=== PATIENT | female | born 1965 | race African-American/Black ===

== ENCOUNTER 2017-09-11 09:48 | Emergency (ER) | payer OTHER ==
[2017-09-11 09:59] VITALS: BP 194/118
[2017-09-11] MEDS ORDERED: LIDOCAINE 5% (700 MG) TRANSDERMAL ADH..PATCH TP ONE (10:31)
[2017-09-11] MEDS ORDERED: KETOROLAC TROMETHAMINE 60 MG/2 ML SDV IM ONE (10:31)
--- NOTE | 2017-09-11 10:36 | ER Document Report ---
ED General - General Chief Complaint: Neck Pain >24hrs old Stated Complaint: NECK PAIN,BACK PAIN Time Seen by Provider: 09/11/17 10:31 TRAVEL OUTSIDE OF THE [place] IN LAST 30 DAYS: No - HPI Patient complains to provider of: Neck pain headache Notes: Patient states neck pain and stiffness ongoing for a week. Denies any history of trauma denies any fever chills nausea vomiting diarrhea. Patient states she does have a headache with pain in the back of her head and front of her head. Patient states she has not taken any Tylenol Motrin for the pain. Patient resting comfortably upon my evaluation. Patient states that she did not take her blood pressure medication this morning. Blood pressure is elevated. - Related Data Allergies/Adverse Reactions: No Known Allergies Allergy (Verified 09/11/17 09:59) Past Medical History - Social History Smoking Status: Never Smoker Chew tobacco use (# tins/day): No Frequency of alcohol use: None Drug Abuse: None Family History: None, Other - NEG. DVT Patient has suicidal ideation: No Patient has homicidal ideation: No - Past Medical History Cardiac Medical History: Reports: Hx Hypertension Renal/ Medical History: Denies: Hx Peritoneal Dialysis Past Surgical History: Reports: Hx Bowel Surgery - SBO, Hx Section, Hx Hysterectomy - Immunizations Hx Diphtheria, Pertussis, Tetanus Vaccination: Yes Hx Pneumococcal Vaccination: 07/18/13 Review of Systems - Review of Systems Constitutional: No symptoms reported EENT: Other - Neck pain Cardiovascular: No symptoms reported Respiratory: No symptoms reported Gastrointestinal: No symptoms reported Genitourinary: No symptoms reported Female Genitourinary: No symptoms reported Musculoskeletal: No symptoms reported Skin: No symptoms reported Hematologic/Lymphatic: No symptoms reported Neurological/Psychological: No symptoms reported Physical Exam - Vital signs Vitals: Temp Pulse Resp BP Pulse Ox 97.7 F 89 16 194/118 H 100 09/11/17 09:55 09/11/17 09:55 09/11/17 09:55 09/11/17 09:55 09/11/17 09:55 Interpretation: Hypertensive - General General appearance: Appears well, Alert - HEENT Head: Normocephalic, Atraumatic Eyes: Normal Conjunctiva: Normal Cornea: Normal Pupils: PERRL Sinus: Normal Nasal: Normal Mouth/Lips: Normal Pharynx: Normal Neck: Other - Decreased range of motion of the neck patient states due to pain. Patient does have pain to the paraspinal muscles especially on the right right greater than left there is pain on the left side.. No: Anterior cervical chain, Posterior cervical chain, Neck mass, Shotty nodes, Thyroid nodule - Respiratory Respiratory status: No respiratory distress Chest status: Nontender Breath sounds: Normal Chest palpation: Normal - Cardiovascular Rhythm: Regular Heart sounds: Normal auscultation Murmur: No - Abdominal Inspection: Normal Distension: No distension Bowel sounds: Normal Tenderness: Nontender Organomegaly: No organomegaly - Back Back: Normal, Nontender - Extremities General upper extremity: Normal inspection, Nontender, Normal color, Normal ROM , Normal temperature General lower extremity: Normal inspection, Nontender, Normal color, Normal ROM , Normal temperature, Normal weight bearing. No: Babak's sign - Neurological Neuro grossly intact: Yes Cognition: Normal Orientation: AAOx4 Caroline Coma Scale Eye Opening: Spontaneous [place] Coma Scale Verbal: Oriented Caroline Coma Scale Motor: Obeys Commands Caroline Coma Scale Total: 15 Speech: Normal Motor strength normal: LUE, RUE, LLE, RLE Sensory: Normal - Psychological Associated symptoms: Normal affect, Normal mood - Skin Skin Temperature: Warm Skin Moisture: Dry Skin Color: Normal Course - Re-evaluation Re-evalutation: 09/11/17 12:19 Patient more likely experiencing muscle spasms and tension headache. Will prescribe Ultram educated the patient use about Tylenol and Motrin. Also educated patient use of ice packs and warm packs. Patient states she did not take her blood pressure medication this morning instructed patient to take her meds as directed when she arrives home. 09/11/17 12:20 The patient presents with headache without signs of DEALER ACCOUNTS INVESTIGATOR bleed, stroke, infection , or other serious etiology. The patient is neurologically intact. Given the extremely low risk of these diagnoses further testing and evaluation for these possibilities does not appear to be indicated at this time. The patient has been instructed to return if the symptoms worsen or change in any way.. - Vital Signs Vital signs: Temp Pulse Resp BP Pulse Ox 97.7 F 89 16 194/118 H 100 09/11/17 09:55 09/11/17 09:55 09/11/17 09:55 09/11/17 09:55 09/11/17 09:55 Discharge - Discharge Clinical Impression: Tension headache, Neck pain Hypertension Qualifiers: Hypertension type: essential hypertension Qualified Code(s): I10 - Essential ( primary) hypertension Condition: Good Disposition: HOME, SELF-CARE Instructions: Acetaminophen, Use of Utem-Fxq-Yievvhe Ibuprofen ([facility]), Ice Massage ([facility]), Muscle Strain ([facility]), Myalagia (Muscle Pain) ([facility]), Tension Headache ([facility]), Warm Packs ([facility]) Additional Instructions: Your symptoms today are caused by tight muscles in your upper back neck causing your headache you have a tension headache. You may take Tylenol and Motrin for pain control. He may take the prescribed medication for pain control as well. Please use ice packs and warm packs. Return to ER symptoms worsen. Prescriptions: Tramadol HCl [Ultram 50 mg Tablet] 50 mg PO ASDIR PRN #20 tablet PRN Reason: Forms: Elevated Blood Pressure
== END 2017-09-11 11:08 | disposition home or self-care (01) ==
LOC: ER 09:48
DX: G44.209 Tension-type headache, unspecified, not intractable (principal); M54.2 Cervicalgia; I10 Essential (primary) hypertension; M54.9 Dorsalgia, unspecified
CPT/HCPCS: 99283; 96372; J1885

== ENCOUNTER 2017-10-11 21:49 | Emergency (ER) | payer OTHER ==
--- NOTE | 2017-10-11 22:18 | RADIOLOGY REPORT (SQ) ---
EXAM DESCRIPTION: FOOT LEFT COMPLETE COMPLETED DATE/TIME: 10/11/2017 10:10 pm REASON FOR STUDY: swelling and injury to foot. COMPARISON: None. NUMBER OF VIEWS: Three views. TECHNIQUE: AP, lateral and oblique radiographic images acquired of the left foot. LIMITATIONS: None. FINDINGS: MINERALIZATION: Normal. BONES: No acute fracture or dislocation. No worrisome bone lesions. JOINTS: No effusions. SOFT TISSUES: No soft tissue swelling. No foreign body. OTHER: No other significant finding. IMPRESSION: NEGATIVE STUDY OF THE LEFT FOOT. NO RADIOGRAPHIC EVIDENCE OF ACUTE INJURY. TECHNICAL DOCUMENTATION: JOB ID: [id number] [employer]- All Rights Reserved
[2017-10-11 23:11] VITALS: BP 184/100
--- NOTE | 2017-10-11 23:34 | ER Document Report ---
HPI - HPI Patient complains to provider of: foot injury Onset: This evening Onset/Duration: Sudden Quality of pain: Sharp Pain Level: 5 Context: Patient states she was attempting to stand up and put her hand on a bookshelf in which the shelf was loose and corner of the shelf fell hitting her right foot. Patient complains of swelling to right midfoot area. Patient complains of inability to ambulate due to pain. Patient states she does have a history of hypertension and forgot to take her evening dose of her medicine tonight. Associated Symptoms: Other - Right foot tenderness Exacerbated by: Standing, Movement, Walking Relieved by: Denies Similar symptoms previously: No Recently seen / treated by doctor: No - ROS ROS below otherwise negative: Yes Systems Reviewed and Negative: Yes All other systems reviewed and negative - REPRODUCTIVE Reproductive: DENIES: : - MUSCULOSKELETAL Musculoskeletal: REPORTS: Extremity pain, Swelling - DERM Skin Color: Normal Skin Problems: None Past Medical History - General Information source: Patient - Social History Smoking Status: Unknown if Ever Smoked Lives with: Spouse/Significant other Family History: None, Other - NEG. DVT Patient has suicidal ideation: No Patient has homicidal ideation: No - Past Medical History Cardiac Medical History: Reports: Hx Hypertension Renal/ Medical History: Denies: Hx Peritoneal Dialysis Musculoskeltal Medical History: Reports Hx Arthritis - Chronic back pain Past Surgical History: Reports: Hx Bowel Surgery - SBO, Hx Section, Hx Hysterectomy - Immunizations Hx Diphtheria, Pertussis, Tetanus Vaccination: Yes Hx Pneumococcal Vaccination: 07/18/13 Vertical Provider Document - CONSTITUTIONAL Agree With Documented VS: Yes Exam Limitations: No Limitations General Appearance: WD/WN, No Apparent Distress - INFECTION CONTROL TRAVEL OUTSIDE OF THE [place] IN LAST 30 DAYS: No - HEENT HEENT: Atraumatic, Normocephalic - NECK Neck: Normal Inspection - RESPIRATORY Respiratory: No Respiratory Distress O2 Sat by Pulse Oximetry: 97 - CARDIOVASCULAR Pulses: Normal: Dorsalis pedis - MUSCULOSKELETAL/EXTREMETIES Musculoskeletal/Extremeties: MAEW, Tender - Right foot tenderness to lateral midfoot area with soft tissue swelling. No ecchymosis, Edema. negative: Eccymosis - NEURO Level of Consciousness: Awake, Alert, Appropriate Motor/Sensory: No Motor Deficit - DERM Integumentary: Warm, Dry Course - Re-evaluation Re-evalutation: 10/11/17 23:48 Spoke with lidar technician who x-rayed patient's foot. Order initially was placed for the left foot although the right foot was actually x-rayed. building energy retrofit technician states that they will call to have radiologist perform an addendum-as the x-ray was indeed performed on the right foot and no left foot film was performed. Soft tissue swelling is visualized on the film consistent with patient's presentation soft tissue swelling that only is noted to the right foot. - Vital Signs Vital signs: Temp Pulse Resp BP Pulse Ox 98.7 F 74 20 184/100 H 97 10/11/17 22:14 10/11/17 23:11 10/11/17 23:11 10/11/17 23:11 10/11/17 23:11 - Diagnostic Test Radiology reviewed: Image reviewed, Reports reviewed Procedures - Immobilization Right Foot Pre-Proc Neuro Vasc Exam: Normal Immobilizer type: Post-op shoe Performed by: RN Post-Proc Neuro Vasc Exam: Normal Alignment checked and good: Yes Discharge - Discharge Clinical Impression: HTN (hypertension) Qualifiers: Hypertension type: unspecified Qualified Code(s): I10 - Essential (primary) hypertension Crush injury of right foot Qualifiers: Encounter type: initial encounter Qualified Code(s): S97.81XA - Crushing injury of right foot, initial encounter Condition: Stable Disposition: HOME, SELF-CARE Instructions: Crush Injury ([facility]), Use of Crutches ([facility]), Ice & Elevation ([facility]) , Post-Op Shoe ([facility]) Additional Instructions: Return immediately for any new or worsening symptoms Followup with your primary care provider, call tomorrow to make a followup appointment Weightbearing as tolerated Follow-up with orthopedic doctor for any continued pain or problems Take your blood pressure medication when you get home as prescribed Forms: Elevated Blood Pressure Referrals: DIONNE PORTILLO MD [Primary Care Provider] - Follow up as needed [facility] [Provider Group] - Follow up as needed
== END 2017-10-11 23:40 | disposition home or self-care (01) ==
LOC: ER 21:49
DX: S97.81XA Crushing injury of right foot, initial encounter (principal); I10 Essential (primary) hypertension; W18.30XA Fall on same level, unspecified, initial encounter; G89.29 Other chronic pain; M54.9 Dorsalgia, unspecified; Z90.710 Acquired absence of both cervix and uterus
CPT/HCPCS: 99283

== ENCOUNTER 2018-06-14 20:31 | Emergency (ER) | payer OTHER ==
[2018-06-14 21:37] VITALS: BP 193/111
[2018-06-14] MEDS ORDERED: ONDANSETRON 4 MG TAB.RAPDIS PO ONE (21:45)
--- NOTE | 2018-06-14 21:46 | ER Document Report ---
ED Medical Screen (RME) - General Chief Complaint: Shoulder Pain Stated Complaint: ARM/ SHOULDER PAIN Time Seen by Provider: 06/14/18 21:42 Mode of Arrival: Ambulatory Information source: Patient Notes: Patient is a 53-year-old female who presents with chief complaint of right shoulder pain that started at 2 AM. Patient reports it woke her up from sleep, has been persistent all day and has associated nausea now due to the level of the pain. Patient reports she has tried taking pain medications at home with no relief. Patient denies any history of similar episodes, denies any history of trauma to this shoulder. Exam: Limited range of motion to right shoulder. Tenderness to palpation to the anterior aspect of the right shoulder. I have greeted and performed a rapid initial assessment of this patient. A comprehensive ED assessment and evaluation of the patient, analysis of test results and completion of the medical decision making process will be conducted by additional ED providers. Dictation of this chart was performed using voice recognition software; therefore, there may be some unintended grammatical errors. TRAVEL OUTSIDE OF THE [place] IN LAST 30 DAYS: No - Related Data Allergies/Adverse Reactions: No Known Allergies Allergy (Verified 06/14/18 21:34) Past Medical History - Social History Frequency of alcohol use: None Drug Abuse: None - Past Medical History Cardiac Medical History: Reports: Hx Hypertension Renal/ Medical History: Denies: Hx Peritoneal Dialysis Musculoskeltal Medical History: Reports Hx Arthritis - Chronic back pain Past Surgical History: Reports: Hx Abdominal Surgery - hernia repair, Hx Bowel Surgery - SBO, Hx Section, Hx Hysterectomy - Immunizations Hx Diphtheria, Pertussis, Tetanus Vaccination: Yes Physical Exam - Vital signs Vitals: Temp Pulse Resp BP Pulse Ox 98.3 F 80 14 193/111 H 99 06/14/18 21:27 06/14/18 21:27 06/14/18 21:27 06/14/18 21:27 06/14/18 21:27 Course - Vital Signs Vital signs: Temp Pulse Resp BP Pulse Ox 98.3 F 80 14 193/111 H 99 06/14/18 21:27 06/14/18 21:27 06/14/18 21:27 06/14/18 21:27 06/14/18 21:27 Doctor's Discharge - Discharge Referrals: DIONNE PORTILLO MD [Primary Care Provider] - Follow up as needed
--- NOTE | 2018-06-14 22:30 | RADIOLOGY REPORT (SQ) ---
EXAM DESCRIPTION: SHOULDER RIGHT 2 OR MORE VIEWS COMPLETED DATE/TIME: 06/14/2018 9:59 pm REASON FOR STUDY: pain, limited ROM COMPARISON: None. NUMBER OF VIEWS: Three views. TECHNIQUE: Internal rotation, external rotation, and Y view images acquired of the right shoulder. LIMITATIONS: None. FINDINGS: MINERALIZATION: Normal. BONES: No acute fracture or dislocation. No worrisome bone lesions. JOINTS: No dislocation. VISUALIZED LUNGS AND RIBS: No pneumothorax. No rib fracture. SOFT TISSUES: No radiopaque foreign body. OTHER: No other significant finding. IMPRESSION: NEGATIVE STUDY OF THE RIGHT SHOULDER. NO RADIOGRAPHIC EVIDENCE OF ACUTE INJURY. TECHNICAL DOCUMENTATION: JOB ID: [id number] [employer]- All Rights Reserved Reading location - IP/workstation name: [email or web address]
--- NOTE | 2018-06-14 23:25 | ER Document Report ---
ED General - General Chief Complaint: Shoulder Pain Stated Complaint: ARM/ SHOULDER PAIN Time Seen by Provider: 06/14/18 21:42 Mode of Arrival: Ambulatory TRAVEL OUTSIDE OF THE [place] IN LAST 30 DAYS: No - HPI Notes: 53-year-old female presents with right shoulder pain. Patient describes onset in the morning after waking up yesterday right shoulder pain. Throbbing and achy, worse with motion. No known discrete trauma. No history of diabetes. No fever. No constitutional symptoms. No numbness or tingling. No other modifying factors, no other associated symptoms, no other provocative or palliative factors. - Related Data Allergies/Adverse Reactions: No Known Allergies Allergy (Verified 06/14/18 21:34) Past Medical History - General Information source: Patient - Social History Smoking Status: Never Smoker Frequency of alcohol use: None Drug Abuse: None Family History: None, Other - NEG. DVT Patient has suicidal ideation: No Patient has homicidal ideation: No - Past Medical History Cardiac Medical History: Reports: Hx Hypertension Renal/ Medical History: Denies: Hx Peritoneal Dialysis Musculoskeletal Medical History: Reports Hx Arthritis - Chronic back pain Past Surgical History: Reports: Hx Abdominal Surgery - hernia repair, Hx Bowel Surgery - SBO, Hx Section, Hx Hysterectomy - Immunizations Hx Diphtheria, Pertussis, Tetanus Vaccination: Yes Hx Pneumococcal Vaccination: 07/18/13 Review of Systems - Review of Systems Notes: Review of systems as in history of present illness, otherwise no significant headache, chest pain, abdominal pain. Physical Exam - Vital signs Vitals: Temp Pulse Resp BP Pulse Ox 98.3 F 80 14 193/111 H 99 06/14/18 21:27 06/14/18 21:27 06/14/18 21:27 06/14/18 21:27 06/14/18 21:27 - Notes Notes: General: Well devloped, no acute distress. HEENT: Normocephalic, atraumatic. Pupils equal round reactive to light. Mucosa moist. No JVD. Chest: No trauma, normal excursion. Respiratory: Good air exchange, normal excursion. Cardiac: Regular rhythm Abdomen: Soft, benign. Nondistended. Back: No asymmetry or gross abnormality. Motor: Grossly normal power and tone. Neurologic: Alert, nonfocal. Vascular: Well perfused Skin: No petechiae or purpura Extremities: Right anterolateral shoulder tenderness. No edema, no erythema or warmth. Range of motion is mildly limited in abduction. Normal neurovascular exam. Course - Re-evaluation Re-evalutation: 06/14/18 23:36 Well-appearing female shoulder pain unclear etiology. No trauma. I see no evidence of infection, no high-risk features. May be related to some type of occult injury or strain. She is declined my offer for known opiate pain medication. She will follow close with the primary care physician, return if worsening. - Vital Signs Vital signs: Temp Pulse Resp BP Pulse Ox 98.3 F 80 14 193/111 H 99 06/14/18 21:27 06/14/18 21:27 06/14/18 21:27 06/14/18 21:27 06/14/18 21:27 Discharge - Discharge Clinical Impression: Shoulder pain Qualifiers: Chronicity: acute Laterality: right Qualified Code(s): M25.511 - Pain in right shoulder Condition: Good Disposition: HOME, SELF-CARE Instructions: Shoulder Injury ([facility]) Referrals: DIONNE PORTILLO MD [Primary Care Provider] - Follow up as needed
== END 2018-06-14 23:53 | disposition home or self-care (01) ==
LOC: ER 20:31
DX: M25.511 Pain in right shoulder (principal); I10 Essential (primary) hypertension
CPT/HCPCS: 99283; 73030; S0119

== ENCOUNTER 2018-12-18 14:13 | Emergency (ER) | payer OTHER ==
--- NOTE | 2018-12-18 15:12 | RADIOLOGY REPORT (SQ) ---
EXAM DESCRIPTION: KNEE RIGHT 4 VIEWS COMPLETED DATE/TIME: 12/18/2018 3:04 pm REASON FOR STUDY: r knee, popliteal pain COMPARISON: None. NUMBER OF VIEWS: Four views. TECHNIQUE: AP, lateral, and both oblique radiographic images acquired of the right knee. LIMITATIONS: None. FINDINGS: MINERALIZATION: Normal. BONES: No acute fracture or dislocation. No worrisome bone lesions. JOINT: No effusion. SOFT TISSUES: No soft tissue swelling. No radio-opaque foreign body. OTHER: No other significant finding. IMPRESSION: NEGATIVE STUDY OF THE RIGHT KNEE. NO RADIOGRAPHIC EVIDENCE OF ACUTE INJURY. TECHNICAL DOCUMENTATION: JOB ID: [id number] [employer]- All Rights Reserved Reading location - IP/workstation name: [email or web address]
--- NOTE | 2018-12-18 17:09 | ER Document Report ---
HPI - HPI Patient complains to provider of: Right knee pain Time Seen by Provider: 12/18/18 14:30 Onset/Duration: Persistent Quality of pain: Achy Pain Level: 3 Context: Patient presents complaining of right knee pain for the past 4 days. Patient denies any fever or injury. Patient complains of pain that is radiating up into the distal right femur area. Associated Symptoms: Other - Right knee joint pain. denies: Fever, Shortness of breath Exacerbated by: Movement, Walking Relieved by: Denies Similar symptoms previously: No Recently seen / treated by doctor: No - ROS ROS below otherwise negative: Yes Systems Reviewed and Negative: Yes All other systems reviewed and negative - CONSTITUTIONAL Constitutional: DENIES: Fever, Chills - NEURO Neurology: DENIES: Headache, Vision blurred, Dizzinesss / Vertigo - CARDIOVASCULAR Cardiovascular: DENIES: Chest pain - RESPIRATORY Respiratory: DENIES: Trouble Breathing, Coughing - GASTROINTESTINAL Gastrointestinal: DENIES: Nausea, Patient vomiting - URINARY Urinary: DENIES: Dysuria, Urgency, Frequency - REPRODUCTIVE Reproductive: DENIES: : - MUSCULOSKELETAL Musculoskeletal: REPORTS: Extremity pain - RIGHT KNEE, Swelling - DERM Skin Color: Normal Skin Problems: None Past Medical History - General Information source: Patient - Social History Smoking Status: Never Smoker Chew tobacco use (# tins/day): No Frequency of alcohol use: None Drug Abuse: None Occupation: [employer] Lives with: Family Family History: None, Other - NEG. DVT Patient has suicidal ideation: No Patient has homicidal ideation: No - Past Medical History Cardiac Medical History: Reports: Hx Hypertension Renal/ Medical History: Denies: Hx Peritoneal Dialysis Musculoskeletal Medical History: Reports Hx Arthritis - Chronic back pain Past Surgical History: Reports: Hx Abdominal Surgery - hernia repair, Hx Bowel Surgery - SBO, Hx Section, Hx Hysterectomy - Immunizations Hx Diphtheria, Pertussis, Tetanus Vaccination: Yes Hx Pneumococcal Vaccination: 07/18/13 Vertical Provider Document - CONSTITUTIONAL Agree With Documented VS: Yes Exam Limitations: No Limitations General Appearance: WD/WN, No Apparent Distress - INFECTION CONTROL TRAVEL OUTSIDE OF THE [place] IN LAST 30 DAYS: No - HEENT HEENT: Atraumatic, Normocephalic - NECK Neck: Normal Inspection - RESPIRATORY Respiratory: Breath Sounds Normal, No Respiratory Distress - CARDIOVASCULAR Cardiovascular: Regular Rate, Regular Rhythm Pulses: Normal: Dorsalis pedis - BACK Back: Normal Inspection - MUSCULOSKELETAL/EXTREMETIES Musculoskeletal/Extremeties: MAEW, FROM, Tender - Patient with right lateral popliteal knee joint pain. No obvious effusion. Normal skin color and temperature overlying joint. - NEURO Level of Consciousness: Awake, Alert, Appropriate Motor/Sensory: No Motor Deficit - DERM Integumentary: Warm, Dry, No Rash Course - Re-evaluation Re-evalutation: 12/18/18 17:07 Preliminary Doppler study negative for DVT, no concern for Valdez's cyst either. Patient with right popliteal knee pain. Joint without any erythema or calor. No concern for septic arthritis at this time. 12/18/18 17:13 Patient reports that she has been off of her blood pressure medication for the past week as she ran out. Patient states she does have her clonidine at home but did not take it today. 12/18/18 17:45 Patient with asymptomatic hypertension at this time. Patient states that she does have prescriptions for her blood pressure medication at home but she cannot afford the co-pay with her insurance. Patient states that she does plan to talk with her primary doctor this month to have her blood pressure medication changed. Patient states she has been on numerous other medications and that this is been the most recent one that they had put her on. Patient states that it has been difficult affording this medication. Patient states that she does have her clonidine at home. Patient denies any chest pain headache, visual changes or back pain. Educated patient at length importance of needing to monitor and treat her hypertension appropriately. Patient is requesting to be discharged at this time. Patient declined Teodoro wrap application while here although did receive the Teodoro wrap with instructions for use. 12/18/18 20:48 - Vital Signs Vital signs: Temp Pulse Resp BP Pulse Ox 98.8 F 86 18 219/103 H 100 12/18/18 14:18 12/18/18 14:18 12/18/18 14:18 12/18/18 14:18 12/18/18 14:18 - Diagnostic Test Radiology reviewed: Reports reviewed Discharge - Discharge Clinical Impression: Hypertension Qualifiers: Hypertension type: unspecified Qualified Code(s): I10 - Essential (primary) hypertension Knee pain, right Qualifiers: Chronicity: acute Qualified Code(s): M25.561 - Pain in right knee Condition: Stable Disposition: HOME, SELF-CARE Instructions: Teodoro Wrap ([facility]), Arthritis ([facility]), Use of Crutches ([facility]), High Blood Pressure, Requiring Treatment ([facility]) Additional Instructions: Return immediately for any new or worsening symptoms Followup with your primary care provider, call tomorrow to make a followup appointment Get your blood pressure medication filled and take as prescribed Talk with your primary doctor about adjusting her medications for better control as well as something that is more affordable for you to take. Follow up with orthopedics for further evaluation of any persistent right knee pain. Prescriptions: Capsaicin [Arthritis Pain Relief] 1 applic TP TID PRN #42.5 cream..g. PRN Reason: Forms: Return to Work Referrals: DIONNE PORTILLO MD [Primary Care Provider] - Follow up tomorrow [facility] [Provider Group] - Follow up in 3-5 days
[2018-12-18] MEDS ORDERED: CLONIDINE HCL 0.1 MG TABLET PO ONE (17:13)
[2018-12-18 17:27] VITALS: BP 216/124
--- NOTE | 2018-12-19 10:00 | XCELERA REPORT ---
[address] [address] Lower Extremity Venous Evaluation Procedure: Color flow and duplex imaging of the veins of the right lower extremity as well as the left Common Femoral vein. Right Sided Venous Evaluation Normal vessel filling wall to wall, compression and augmentation as well as Colour flow down to the infrageniculate veins. Left Sided Venous Evaluation The left common femoral vein is fully compressible. Spontaneous and phasic flow is present in the left common femoral vein. Critical Findings Called in to JEFERSON Marti. Interpretation Summary No duplex evidence of DVT or obstruction in the right lower extremity nor in the left Common Femoral vein. Name: MAURI GARCIA Age: 53 yrs Gender: Female : 1965 Patient Status: Emergency Patient Location: ER Study Date: 12/18/2018 04:32 PM Reason For Study: r knee, popliteal, distal femur Ordering Physician: ANDREA MARTI Performed By: Rob Guevara : ANDREA MARTI > Mika Nunez
== END 2018-12-18 17:52 | disposition home or self-care (01) ==
LOC: ER 14:13
DX: M25.561 Pain in right knee (principal); I10 Essential (primary) hypertension; T50.906A Underdosing of unspecified drugs, medicaments and biological substances, initial encounter; Z91.120 Patient's intentional underdosing of medication regimen due to financial hardship; Z91.14 Patient's other noncompliance with medication regimen; Z79.899 Other long term (current) drug therapy
CPT/HCPCS: 93971; 99284

== ENCOUNTER → 2019-07-07 | Outpatient (CLI) | payer OTHER ==
--- NOTE | 2019-07-07 13:51 | RADIOLOGY REPORT (SQ) ---
EXAM DESCRIPTION: L SPINE W/FLEX/EXT COMPLETED DATE/TIME: 07/07/2019 1:35 pm REASON FOR STUDY: LOW BACK PAIN (M54.5) M54.5 LOW BACK PAIN COMPARISON: None. NUMBER OF VIEWS: Seven views. TECHNIQUE: AP, lateral, obliques, flexion, extension, and sacral radiographic images acquired. LIMITATIONS: None. FINDINGS: MINERALIZATION: Normal. SEGMENTATION: Normal. No transitional anatomy. ALIGNMENT: Normal. FLEXION/EXTENSION: No instability. VERTEBRAE: Maintained height. No fracture or worrisome bone lesion. DISCS: There is disc space narrowing at L5-S1. POSTERIOR ELEMENTS: Pedicles and facets are intact. No pars defect or posterior arch defects. HARDWARE: None in the spine. PARASPINAL SOFT TISSUES: Normal. PELVIS: Intact as visualized. No fractures or worrisome bone lesions. SI joints intact. OTHER: No other significant finding. IMPRESSION: Disc space narrowing at L5-S1. No instability. TECHNICAL DOCUMENTATION: JOB ID: [id number] [employer]- All Rights Reserved Reading location - IP/workstation name: [email or web address]
== END ==
LOC: RAD 13:05
PROVIDERS: ATTEND Nurse Practitioner Family
DX: M48.07 Spinal stenosis, lumbosacral region (principal); M54.5 Low back pain
CPT/HCPCS: 72114

== ENCOUNTER → 2019-11-30 | Outpatient (CLI) | payer OTHER ==
--- NOTE | 2019-11-30 13:51 | RADIOLOGY REPORT (SQ) ---
EXAM DESCRIPTION: SACROILIAC JOINTS COMPLETED DATE/TIME: 11/30/2019 12:09 pm REASON FOR STUDY: M54.5 LOW BACK PAIN M54.5 LOW BACK PAIN M25.561 PAIN IN RIGHT KNEE COMPARISON: None. NUMBER OF VIEWS: Three views. TECHNIQUE: AP and oblique views of the sacroiliac joints. LIMITATIONS: None. FINDINGS: MINERALIZATION: Normal. BONES: No acute fracture or dislocation. No worrisome bone lesions. No significant osteophytes. JOINTS: There is mild sclerosis of the right sacroiliac joint. There is no evident effusion. SOFT TISSUES: No soft tissue swelling. No radio-opaque foreign body. OTHER: No other significant finding. IMPRESSION: Right sacroiliitis. TECHNICAL DOCUMENTATION: JOB ID: [id number] 2010 [employer]- All Rights Reserved Reading location - IP/workstation name: [email or web address]
--- NOTE | 2019-11-30 13:52 | RADIOLOGY REPORT (SQ) ---
EXAM DESCRIPTION: KNEE RIGHT 2 VIEWS COMPLETED DATE/TIME: 11/30/2019 12:09 pm REASON FOR STUDY: M25.561 PAIN, JOINT, KNEE,RIGHT M54.5 LOW BACK PAIN M25.561 PAIN IN RIGHT KNEE COMPARISON: None. NUMBER OF VIEWS: Two views. TECHNIQUE: AP and lateral radiographic images acquired of the right knee. LIMITATIONS: None. FINDINGS: MINERALIZATION: Normal. BONES: No acute fracture or dislocation. No worrisome bone lesions. JOINT: No effusion. There is narrowing of the patellofemoral joint with small posterior patellar ost eophytes. Slight narrowing of the medial compartment with tiny marginal osteophytes. SOFT TISSUES: No soft tissue swelling. No radio-opaque foreign body. OTHER: No other significant finding. IMPRESSION: Mild degenerative joint changes. TECHNICAL DOCUMENTATION: JOB ID: [id number] 2010 [employer]- All Rights Reserved Reading location - IP/workstation name: [email or web address]
== END ==
LOC: RAD 11:40
PROVIDERS: ATTEND Pain Medicine Pain Medicine
DX: M54.5 Low back pain (principal); M25.561 Pain in right knee
CPT/HCPCS: 72200

== ENCOUNTER 2020-05-10 19:16 | Emergency (ER) | payer OTHER ==
[2020-05-10] MEDS ORDERED: ASPIRIN 81 MG TABLET, CHEWABLE PO ONE (19:34)
--- NOTE | 2020-05-10 19:37 | ER Document Report ---
ED Medical Screen (RME) - General Chief Complaint: Chest Tightness Stated Complaint: BLOOD PRESSURE ISSUES/CHEST TIGHTNESS Time Seen by Provider: 05/10/20 19:33 Primary Care Provider: DIONNE PORTILLO MD [Primary Care Provider] - Follow up as needed Mode of Arrival: Ambulatory Information source: Patient Notes: 55-year-old female presented to ED for high blood pressure 228/120 with headache fogginess dizziness nausea and vomiting dryness to her vision. No numbness or tingling. She states she does have chest tightness but no short of breath. She states is not a definite change is very tight chested. She is alert oriented answering questions appropriately. She does states she feels very marino foggy. We will get blood EKG chest x-ray and head CT. I have greeted and performed a rapid initial assessment of this patient. A comprehensive ED assessment and evaluation of the patient, analysis of test results and completion of medical decision making process will be conducted by an additional ED providers. TRAVEL OUTSIDE OF THE [place] IN LAST 30 DAYS: No - Related Data Allergies/Adverse Reactions: No Known Allergies Allergy (Verified 05/10/20 19:46) Past Medical History - Past Medical History Cardiac Medical History: Reports: Hx Hypertension Renal/ Medical History: Denies: Hx Peritoneal Dialysis Musculoskeltal Medical History: Reports Hx Arthritis - Chronic back pain Past Surgical History: Reports: Hx Abdominal Surgery - hernia repair, Hx Bowel Surgery - SBO, Hx Section, Hx Hysterectomy - Immunizations Hx Diphtheria, Pertussis, Tetanus Vaccination: Yes Physical Exam - Vital signs Vitals: Temp Pulse Resp BP Pulse Ox 98.3 F 103 H 15 228/128 H 100 05/10/20 19:33 05/10/20 19:33 05/10/20 19:33 05/10/20 19:33 05/10/20 19:33 Course - Vital Signs Vital signs: Temp Pulse Resp BP Pulse Ox 98.3 F 103 H 15 228/128 H 100 05/10/20 19:33 05/10/20 19:33 05/10/20 19:33 05/10/20 19:33 05/10/20 19:33 Doctor's Discharge - Discharge Referrals: DIONNE PORTILLO MD [Primary Care Provider] - Follow up as needed
[2020-05-10 20:22] LABS: ABSOLUTE LYMPHOCYTES (AUTO) 1.6 10^3/uL (0.5-4.7); ABSOLUTE MONOCYTES (AUTO) 0.7 10^3/uL (0.1-1.4); ABSOLUTE NEUT (AUTO) 6.2 10^3/uL (1.7-8.2); BASOPHILS % (AUTO) 0.6 % (0-2); EOSINOPHILS % (AUTO) 0.2 % (0-6); HEMATOCRIT 44.5 % (36.0-47.0); HEMOGLOBIN 14.3 g/dL (12.0-15.5); LYMPHOCYTES % (AUTO) 18.7 % (13-45); MEAN CORPUSCULAR HEMOGLOBIN 26.9 pg (27.0-33.4); MEAN CORPUSCULAR HGB CONC 32.3 g/dL (32.0-36.0); MEAN CORPUSCULAR VOLUME 84 fl (80-97); MONOCYTES % (AUTO) 8.2 % (3-13); PLATELET COUNT 217 10^3/uL (150-450); RED BLOOD COUNT 5.33 10^6/uL (3.72-5.28); RED CELL DISTRIBUTION WIDTH 13.8 % (11.5-14.0); SEGMENTED NEUTROPHILS % (AUTO) 72.3 % (42-78); TOTAL CELLS COUNTED % (AUTO) 100 %; WHITE BLOOD COUNT 8.6 10^3/uL (4.0-10.5)
--- NOTE | 2020-05-10 20:22 | RADIOLOGY REPORT (SQ) ---
Chest 2 view on 05/10/2020 at 7:59 PM CLINICAL INDICATION: Chest pain COMPARISON: 02/08/2012 FINDINGS: The lungs are clear. There is mild elevation of the right hemidiaphragm. Cardiac, hilar and mediastinal contours are within normal limits. Pulmonary vascularity is within normal limits. No bony abnormality is noted. IMPRESSION: No active disease.
--- NOTE | 2020-05-10 20:23 | RADIOLOGY REPORT (SQ) ---
CT head without contrast on 05/10/2020 at 8:02 PM CLINICAL INDICATION: Headache, dizziness, hypertension TECHNIQUE: Multiple axial images are obtained throughout the head without the administration of contrast. This exam was performed according to our departmental dose-optimization program, which includes automated exposure control, adjustment of the mA and/or kV according to patient size and/or use of iterative reconstruction technique. Total DLP is 963.96 mGy*cm. COMPARISON: 02/08/2012 FINDINGS: There is no hydrocephalus. There is no CT evidence of acute infarct. There is no hemorrhage. There are no abnormal extra-axial fluid collections. There is no mass, mass effect or midline shift. No bony abnormality is noted. IMPRESSION: No acute intracranial abnormality.
[2020-05-10 20:32] LABS: INTERNATIONAL RATION (INR) 0.87; PARTIAL THROMBOPLASTIN TIME 25.7 SEC (23.5-35.8); PROTHROMBIN TIME 11.8 SEC (11.4-15.4)
[2020-05-10] MEDS ORDERED: LABETALOL HCL INJ 20 MG/4 ML DISP.SYRIN IV ONE ×2 (20:33→21:37)
[2020-05-10] MEDS ORDERED: ONDANSETRON HCL INJ/PF 4 MG/2 ML SDV IV ONE (20:34)
--- NOTE | 2020-05-10 20:40 | ER Document Report ---
ED General - General Chief Complaint: Chest Tightness Stated Complaint: BLOOD PRESSURE ISSUES/CHEST TIGHTNESS Time Seen by Provider: 05/10/20 19:33 Primary Care Provider: DIONNE PORTILLO MD [Primary Care Provider] - Follow up as needed Mode of Arrival: Ambulatory TRAVEL OUTSIDE OF THE [place] IN LAST 30 DAYS: No - HPI Notes: Chief complaint: Dizziness, headache, nausea, palpitations and tightness in chest History of present illness: 55-year-old female followed by Dr. Portillo with history of hypertension awakened this morning not feeling well and throughout the day symptoms have become worse including, dizziness, generalized pounding headache, nausea, palpitations and vague tightness in chest. Patient has been on amlodipine for blood pressure long-term. She says she is missed it a couple times this week and forgot to take her dose again this morning. She is a non- smoker. She denies use of drugs. She denies any focal neurologic symptoms. - Related Data Allergies/Adverse Reactions: No Known Allergies Allergy (Verified 05/10/20 19:46) Home Medications: amlodipine... Past Medical History - General Information source: Patient, [facility] Records - Social History Smoking Status: Never Smoker Chew tobacco use (# tins/day): No Frequency of alcohol use: None Drug Abuse: Bath salts Family History: None, Other - NEG. DVT Patient has homicidal ideation: No - Past Medical History Cardiac Medical History: Reports: Hx Hypertension Endocrine Medical History: Denies: Hx Diabetes Mellitus Type 1, Hx Diabetes Mellitus Type 2 Renal/ Medical History: Denies: Hx Peritoneal Dialysis Musculoskeletal Medical History: Reports Hx Arthritis - Chronic back pain Past Surgical History: Reports: Hx Abdominal Surgery - hernia repair, Hx Bowel Surgery - SBO, Hx Section, Hx Hysterectomy - Immunizations Hx Diphtheria, Pertussis, Tetanus Vaccination: Yes Hx Pneumococcal Vaccination: 07/18/13 Review of Systems - Review of Systems Notes: Constitutional: Negative for fever. HENT: Negative for sore throat. Eyes: Negative for visual changes. Cardiovascular: As per HPI. Respiratory: Negative for shortness of breath. Gastrointestinal: As per HPI. Genitourinary: Negative for dysuria. Musculoskeletal: Negative for back pain. Skin: Negative for rash. Neurological: As per HPI. 10 point ROS negative except as marked above and in HPI. Physical Exam - Vital signs Vitals: Temp Pulse Resp BP Pulse Ox 98.3 F 103 H 15 228/128 H 100 05/10/20 19:33 05/10/20 19:33 05/10/20 19:33 05/10/20 19:33 05/10/20 19:33 Interpretation: Hypertensive, Tachycardic - Notes Notes: GENERAL: Middle-age female appearing somewhat anxious. SKIN: Good turgor no rashes. HEAD: Normocephalic atraumatic. EYES: PERRLA. EOMI. Conjunctivae and sclerae clear. EARS: CANALS AND TMS CLEAR. NOSE: CLEAR. MOUTH: Moist mucosa. Good dentition. No stridor or edema. No drooling. NECK: Supple. No masses or thyromegaly. No adenopathy. Carotids 2+ without bruits. No JVD. BACK: Symmetrical without tenderness. CHEST: Respirations unlabored. Breath sounds clear and symmetrical. HEART: Regular rhythm. Loud S2 consistent with hypertension. No murmur gallop or rub. ABDOMEN: Soft nontender without masses, organomegaly or rebound. Bowel sounds normally active. No bruits. GENITALIA: Deferred. EXTREMITIES: No edema. No calf tenderness. Cap refill less than 1.5 seconds. Dorsalis pedis and posterior tibial pulses 3+ and symmetrical. NEUROLOGICAL: GCS 15. Alert and oriented x3. Normal gait. Fluent speech. Cranial nerves II through XII intact. Sensorimotor and cerebellar normal. Normal tone. PSYCHIATRIC: Appropriate affect. Course - Re-evaluation Re-evalutation: 05/10/20 23:26 Current findings consistent with hypertensive urgency. Negative head CT. Normal chest x-ray. No acute changes on EKG. Troponin normal. Creatinine normal. Proteinuria present. Patient received 2 doses of IV labetalol. Blood pressure came down to approximately 170/60. She is totally asymptomatic at this point. In talking with her she is not been completely compliant with her current monotherapy with amlodipine. We encourage improved compliance with her previously prescribed therapy. I am also going to add lisinopril/HCTZ. Recommend light activity over the weekend and follow-up with her primary care physician on Wednesday. She understands she is to return here if she develops new or worsening symptoms. Findings, clinical impression and plan of treatment have been discussed with patient/family. Understanding of current findings and recommendations has been acknowledged by them and there is agreement regarding disposition and follow-up. - Vital Signs Vital signs: Temp Pulse Resp BP Pulse Ox 98.3 F 103 H 23 H 174/88 H 94 05/10/20 19:33 05/10/20 19:33 05/10/20 22:31 05/10/20 22:31 05/10/20 22:31 - Laboratory Result Diagrams: 05/10/20 20:11 05/10/20 20:11 Laboratory results interpreted by me: 05/10/20 05/10/20 05/10/20 20:11 20:11 22:40 RBC 5.33 H MCH 26.9 L BUN 21 H Calcium 10.8 H Total Bilirubin 2.0 H AST 38 H Creatine Kinase 218 H Total Protein 8.3 H Albumin 5.1 H Urine Protein 30 H Urine Urobilinogen 2.0 H Leukocyte Esterase Rfl TRACE H - Diagnostic Test Radiology reviewed: Reports reviewed - Chest x-ray a noncontrast head CT normal per radiologist. - EKG Interpretation by Me Additional EKG results interpreted by me: 05/10/20 20:40 Twelve-lead EKG from 1942 hrs. reviewed contemporaneously by me showing normal sinus rhythm with a rate of 93 and a normal QRS axis of +15 degrees and normal intervals. There are nonspecific T wave changes noted in the lateral leads. There is also left atrial abnormality. There are no acute ST segment changes. No prior tracing here for comparison. Indication for current study: Hypertension. Critical Care Note - Critical Care Note Total time excluding time spent on procedures (mins): 35 - IV labetalol for hypertensive emergency Discharge - Discharge Clinical Impression: Hypertensive urgency Condition: Stable Disposition: HOME, SELF-CARE Additional Instructions: High Blood Pressure, Requiring Treatment Your blood pressure is high. This is called "hypertension." Today's reading was_220/120 Your history and exam suggest that this is not a temporary problem. You need more intensive treatment of your blood pressure. If left untreated, high blood pressure greatly increases your risk of heart attack and stroke. Please don't ignore this problem. Be sure to take your previously prescribed amlodipine daily as directed. A new combination medication is also being prescribed to help keep your blood pressure down. Some simple things you can do to help are: Get some aerobic exercise for at l east 20 minutes on a daily basis. (See your doctor before beginning any new exercise program.) Eat a low-fat diet. Lose excess weight. Avoid salty foods and avoid adding salt to any of the foods you eat. Avoid diet pills, decongestants, "energizing" herbs, and other medicines that elevate blood p ressure. See your doctor for follow-up on your blood pressure within the next 3 days. You will be provided a work note to keep you out until you have been reevaluated by your doctor. Return here as needed for new or worsening symptoms: Headache or chest pain that is worsening or unimproved Uncontrolled vomiting Difficulty breathing Overall worsening Prescriptions: Lisinopril/Hydrochlorothiazide [Lisinopril-Hctz 10-12.5 mg Tab] 1 each PO QAM 30 Days #30 tablet Referrals: DIONNE PORTILLO MD [Primary Care Provider] - Follow up as needed
[2020-05-10] MEDS: MORPHINE SULFATE 10 MG/ML INJ IV ONE ×2 (20:42→20:51)
[2020-05-10 20:54] LABS: ALBUMIN 5.1 g/dL (3.5-5.0); ALKALINE PHOSPHATASE 99 U/L (38-126); ANION GAP 8 (5-19); ASPARTATE AMINO TRANSFERASE 38 U/L (14-36); BILIRUBIN,DIRECT 0.1 mg/dL (0.0-0.4); BLOOD UREA NITROGEN 21 mg/dL (7-20); CALCIUM 10.8 mg/dL (8.4-10.2); CARBON DIOXIDE 28 mmol/L (22-30); CHLORIDE 102 mmol/L (98-107); CREATINE KINASE 218 U/L (30-135); GLUCOSE 102 mg/dL (75-110); POTASSIUM 3.9 mmol/L (3.6-5.0); TOTAL PROTEIN 8.3 g/dL (6.3-8.2)
[2020-05-10 22:54] LABS: APPEARANCE,URINE CLEAR; BILIRUBIN,URINE NEGATIVE (NEGATIVE); COLOR,URINE YELLOW; GLUCOSE, URINE NEGATIVE (NEGATIVE); KETONES,URINE NEGATIVE (NEGATIVE); PROTEIN,URINE 30 mg/dL (NEGATIVE); URINE SPECIFIC GRAVITY 1.019
[2020-05-10] MEDS ORDERED: METOCLOPRAMIDE HCL INJ/PF 10 MG/2 ML SDV IV ONE (23:41)
[2020-05-10] MEDS ORDERED: METOCLOPRAMIDE HCL INJ/PF 10 MG/2 ML SDV ONE (23:41)
[2020-05-11 00:24] VITALS: BP 184/99
--- NOTE | 2020-05-11 10:25 | EKG REPORT ---
SEVERITY:- ABNORMAL ECG - SINUS RHYTHM PROBABLE LEFT ATRIAL ABNORMALITY NONSPECIFIC T ABNORMALITIES, LATERAL LEADS : Confirmed by: Moraima Duarte 11-May-2020 10:24:38
== END 2020-05-11 00:25 | disposition home or self-care (01) ==
LOC: ER 19:16
DX: R39.15 Urgency of urination (principal); R07.9 Chest pain, unspecified; R42 Dizziness and giddiness; R51 Headache; R11.0 Nausea; R00.2 Palpitations; Z79.899 Other long term (current) drug therapy; I10 Essential (primary) hypertension
CPT/HCPCS: 93005; 96376; 99291; 96374; 96375; 36415; 87086; 82550; 83735; 85025; 85610; 85730; 80053; 81001; 84484; 71046; 70450; 93010; J3490; J2765; J2270; J2405